=== PATIENT | male | born 1965 | race African-American/Black ===

== ENCOUNTER → 2018-08-03 | Day surgery (SDC) | payer OTHER ==
[~2018-08-03] MED LIST: AMLODIPINE BESY10 MG PO; BUPIVACAINE HCL 0.5% INJ 30 ML VIAL INJ ONE; CEFAZOLIN SOD 1 GM/NS 50ML 50 ML IV ONE; FENTANYL CITRATE/PF 100MCG/2 ML INJ ONE; MIDAZOLAM HCL 2 MG/2 ML VIAL ONE; MUPIROCIN 2% OINT 22 GM TUBE ONE; ONDANSETRON HCL INJ 2MG/ML 2ML 2 MG/ML VIAL ONE; SEVOFLURANE INHAL SOLN 250 ML PEN BTL ONE
--- OUTSIDE RECORDS SUMMARY | 2018-08-03 05:09 | XMS REPORT | Clinical Summary ---
Author Author [facility] Organization [facility] Address Unknown Phone Unavailable Care Team Providers Care Chief Embalmer Name Role Phone Jarett Tejeda MD PCP Allergies No Known Allergies Medications End Date Status Medication Sig Dispensed Refills Start Date Active atorvastatin (LIPITOR) 20 Take 20 mg by 0 MG tablet mouth daily. Default OP ins Active amLODIPine (NORVASC) 5 mg Take 5 mg by 0 tablet mouth daily. Active Problems Not on file Encounters Care Team Description Date Type Specialty 09/11/2017 Hospital Radiology Encounter after 08/02/2017 Social History Date Tobacco Use Types Packs/Day Years Used Current Some Day Smoker Cigars Alcohol Use Drinks/Week oz/Week Comments Yes beer every weekend Sex Assigned at Date Recorded Not on file Industry Job Start Date Occupation Not on file Not on file Not on file Travel End Travel History Travel Start No recent travel history available. Last Filed Vital Signs Not on file Plan of Treatment Health Maintenance Due Date Last Done Comments COLON CANCER SCREENING 2015 SHINGLES VACCINES (#1) 2015 INFLUENZA VACCINE 12/30/2017 Results Not on fileafter 08/02/2017 Insurance Payer Benefit Subscriber ID Type Phone Address Plan / Group AETNA AETNA xxxxxxxxxx HMO HMO,POS,EP O, [facility] Advance Directives Patient has advance care planning documents on file. For more information, [facility] contact: Arturo Murphy [address] [place] [address]
[2018-08-03 08:55] VITALS: BP 137/95
--- NOTE | 2018-08-03 17:06 | Operative Report ---
DATE OF PROCEDURE: 08/03/2018 SURGEON: Roddy Uribe MD PREOPERATIVE DIAGNOSIS: Stenosing tenosynovitis of right long finger. POSTOPERATIVE DIAGNOSIS: Stenosing tenosynovitis of right long finger. OPERATION PERFORMED: Tenovaginotomy of right long finger. ANESTHESIA: General. HISTORY: The patient is a 53-year-old right hand-dominant male who presents with stenosing tenosynovitis of the right long finger that is recalcitrant to conservative treatment. The risks, benefits, and alternatives of treatment were discussed with the patient and they are prepared to undergo the procedure as outlined. DESCRIPTION OF PROCEDURE: The patient was brought to the operating theater. After the induction of adequate general/regional anesthesia, the patient was prepped and draped in a supine position. A time out was performed by the entire operating room team. An oblique incision was marked out over the A1 deidre of the right long finger. The upper extremity was exsanguinated, and a tourniquet was inflated to a pressure of 250 mmHg. The incision was made through the skin and subcutaneous tissues. All venous tributaries were controlled with bipolar cautery. The incision was deepened through the palmar tissues. The neurovascular bundles on the radial and ulnar sides of the flexor tendon sheath were identified and retracted away from the flexor tendon sheath and preserved. The A1 deidre of the affected finger was identified and incised longitudinally, taking care to protect and preserve the flexor tendons within the sheath. After the complete length of the deidre had been transected, the tendons were placed in a range of motion. There was noted to be good motion without any locking. The wound was then copiously irrigated with bacteriostatic saline and closed with 5-0 nylon in an interrupted horizontal mattress fashion. A Marcaine field block was performed at the operative site. The tourniquet was deflated. All the fingers pinked up nicely. A sterile bulky conforming bandage was applied to the hand, and the patient was returned to the recovery room in satisfactory condition and was discharged with a postoperative instruction sheet as well as a followup appointment. Roddy Uribe MD ER/MODL /[id number]
== END | disposition home or self-care (01) ==
LOC: OR 05:06
PROVIDERS: ATTEND Plastic Surgery
DX: M65.331 Trigger finger, right middle finger (principal); I10 Essential (primary) hypertension
CPT/HCPCS: 26055; J0690; J2250; J2405